=== PATIENT | female | born 1935 | race Caucasian/White ===

== ENCOUNTER → 2016-11-15 | Outpatient (CLI) | payer OTHER, MEDICARE | LOC: BHLMT 09:30 | PROVIDERS: ATTEND Internal Medicine Cardiovascular Disease | DX: R07.9 Chest pain, unspecified (principal); R00.2 Palpitations; I11.9 Hypertensive heart disease without heart failure | CPT/HCPCS: 78452; 93017; A9500; J2785 ==

== ENCOUNTER → 2017-08-22 | Outpatient (CLI) | payer OTHER, MEDICARE | LOC: BHFA 15:00 | PROVIDERS: ATTEND Internal Medicine Cardiovascular Disease | DX: R53.83 Other fatigue (principal); R06.02 Shortness of breath; I11.9 Hypertensive heart disease without heart failure; I48.91 Unspecified atrial fibrillation ==

== ENCOUNTER → 2017-09-04 | Outpatient (CLI) | payer OTHER, MEDICARE | LOC: FLAB 10:49 | PROVIDERS: ATTEND Internal Medicine Cardiovascular Disease | DX: R53.83 Other fatigue (principal); R06.02 Shortness of breath; I11.9 Hypertensive heart disease without heart failure; I48.91 Unspecified atrial fibrillation ==

== ENCOUNTER → 2017-09-08 | Outpatient (CLI) | payer OTHER, MEDICARE | LOC: FIMAGING 10:27 | DX: Z12.31 Encounter for screening mammogram for malignant neoplasm of breast (principal); Z80.3 Family history of malignant neoplasm of breast ==

== ENCOUNTER → 2017-09-28 | Outpatient (CLI) | payer OTHER, MEDICARE | LOC: BHFA 10:00 | PROVIDERS: ATTEND Internal Medicine Cardiovascular Disease | DX: I48.91 Unspecified atrial fibrillation (principal); I11.9 Hypertensive heart disease without heart failure; R53.83 Other fatigue; I49.1 Atrial premature depolarization; R06.02 Shortness of breath ==

== ENCOUNTER 2017-12-20 09:13 | Emergency (ER) | payer OTHER, MEDICARE ==
[2017-12-20 09:44] LABS: PLATELET COUNT 176 10^3/uL (150-400)
[2017-12-20] MEDS ORDERED: DILTIAZEM 25 MG/5 ML VIAL IVP ONE (09:50)
--- NOTE | 2017-12-20 09:54 | EDPHY ---
H & P Stated Complaint: palpitations since this am "i think im in A-fib" Time Seen by Provider: 12/20/17 09:20 HPI/ROS: CHIEF COMPLAINT: Rapid heart rate HISTORY OF PRESENT ILLNESS: 82-year-old female with atrial fibrillation on Eliquis presents with rapid heart rate. She woke this morning with a rapid and pounding heart rate. Associated with vague chest discomfort and significant anxiety. She took metoprolol and Eliquis as prescribed. However, the tachycardia persists. Feels like she is in atrial fibrillation. Chest discomfort is typical of episodes of Afib, no h/o CAD. REVIEW OF SYSTEMS: complete 10 point ROS reviewed and is negative except for the noted elements in the HPI Source: Patient - Medical/Surgical History Hx Asthma: No Hx Chronic Respiratory Disease: No Hx Diabetes: No Hx Cardiac Disease: Yes Hx Renal Disease: No Hx Cirrhosis: No Hx Alcoholism: No Hx HIV/AIDS: No Hx Splenectomy or Spleen Trauma: No Other PMH: A fib. htn - Social History Smoking Status: Never smoked Additional Social History: - Physical Exam Exam: General Appearance: Alert, pleasant Eyes: Pupils equal and round, no conjunctival pallor or injection ENT, Mouth: Mucous membranes moist Neck: Normal inspection Respiratory: Lungs are clear to auscultation Cardiovascular: Regular tachycardia Gastrointestinal: Abdomen is soft and nontender Neurological: A&O, nonfocal, normal gait Skin: Warm and dry, no rash Extremities: Nontender, no pedal edema Psychiatric: Anxious Constitutional: Initial Vital Signs Temperature (C) 36.5 C 12/20/17 09:13 Heart Rate 122 H 12/20/17 09:13 Respiratory Rate 24 H 12/20/17 09:13 Blood Pressure 177/107 H 12/20/17 09:13 O2 Sat (%) 99 12/20/17 09:13 O2 Delivery Mode Room Air Allergies/Adverse Reactions: No Known Allergies Allergy (Unverified 12/20/17 09:18) Home Medications: Medication Instructions Recorded Eliquis 12/20/17 Lisinopril 12/20/17 Metoprolol Tartrate 12/20/17 Medical Decision Making - Diagnostics EKG Interpretation: EKG interpreted by me reveals narrow complex tachycardia, rate 120, likely atrial flutter, no ST or T segment changes. Interpretation: Abnormal EKG ED Course/Re-evaluation: This patient presents with tachycardia, most likely atrial flutter. 0955: Diltiazem 10 mg IV ordered, but not given, as pt converted to NSR, rate 60 -70. Repeat EKG reveals normal sinus rhythm, rate 68, Pac, LVH. Interpretation: Abnormal EKG. Feels much better, anxiety, tachycardia and chest discomfort have completely resolved. Will follow up with Dr. Tierney in the office. Differential Diagnosis: Differential diagnosis includes though it is not limited to pneumonia, pneumothorax, pulmonary embolism, aortic dissection, pericarditis, acute coronary syndrome. - Data Points Laboratory Results: Laboratory Results 12/20/17 09:29 12/20/17 09:29 12/20/17 12/20/17 12/20/17 09:31 09: 09:29 WBC 5.76 10^3/uL 10^3/uL (3.80-9.50) RBC 5.05 10^6/uL 10^6/uL (4.18-5.33) Hgb 16.0 g/dL g/dL (12.6-16.3) Hct 45.0 % % (38.0-47.0) MCV 89.1 fL fL (81.5-99.8) MCH 31.7 pg pg (27.9-34.1) MCHC 35.6 g/dL g/dL (32.4-36.7) RDW 13.4 % % (11.5-15.2) Plt Count 176 10^3/uL 10^3/uL (150-400) MPV 9.3 fL fL (8.7-11.7) Neut % (Auto) 55.7 % % (39.3-74.2) Lymph % (Auto) 29.9 % % (15.0-45.0) Evans % (Auto) 9.5 % % (4.5-13.0) Eos % (Auto) 4.0 % % (0.6-7.6) Baso % (Auto) 0.7 % % (0.3-1.7) Nucleat RBC Rel Count 0.0 % % (0.0-0.2) Absolute Neuts (auto) 3.21 10^3/uL 10^3/uL (1.70-6.50) Absolute Lymphs (auto) 1.72 10^3/uL 10^3/uL (1.00-3.00) Absolute Monos (auto) 0.55 10^3/uL 10^3/uL (0.30-0.80) Absolute Eos (auto) 0.23 10^3/uL 10^3/uL (0.03-0.40) Absolute Basos (auto) 0.04 10^3/uL 10^3/uL (0.02-0.10) Absolute Nucleated RBC 0.00 10^3/uL 10^3/uL (0-0.01) Immature Gran % 0.2 % % (0.0-1.1) Immature Gran # 0.01 10^3/uL 10^3/uL (0.00-0.10) Sodium 140 mEq/L mEq/L (135-145) Potassium 3.6 mEq/L mEq/L (3.3-5.0) Chloride 105 mEq/L mEq/L (97-110) Carbon Dioxide 23 mEq/l mEq/l (22-31) Anion Gap 12 mEq/L mEq/L (6-14) BUN 10 mg/dL mg/dL (7-23) Creatinine 0.6 mg/dL mg/dL (0.6-1.0) Estimated GFR > 60 Glucose 116 mg/dL H mg/dL (70-100) Calcium 10.0 mg/dL mg/dL (8.5-10.4) POC Troponin I 0.03 ng/mL ng/mL (0.00-0.08) NT-Pro-B Natriuret Pep 717 pg/mL H pg/mL (0-450) Medications Given: Discontinued Medications Diltiazem HCl (Cardizem 25 Mg/5 Ml Vial) 10 mg IVP EDNOW ONE Stop: 12/20/17 09:51 Last Admin: 12/20/17 10:02 Dose: Not Given Point of Care Test Results: Chemistry 12/20/17 09:31 POC Troponin I 0.03 ng/mL ng/mL (0.00-0.08) Departure - Departure Disposition: Home, Routine, Self-Care Clinical Impression: Atrial flutter, paroxysmal Condition: Good Instructions: Atrial Flutter (ED) Additional Instructions: Return for recurrent symptoms or any concerns. Referrals: Zeke Tierney MD [Medical Doctor] - As per Instructions
[2017-12-20 10:35] VITALS: BP 177/104
--- NOTE | 2017-12-20 11:16 | CPEKG ---
Test Reason : OPEN Blood Pressure : / mmHG Vent. Rate : 068 BPM Atrial Rate : 066 BPM P-R Int : 211 ms QRS Dur : 109 ms QT Int : 450 ms P-R-T Axes : 068 -26 019 degrees QTc Int : 479 ms Sinus rhythm Atrial premature complexes Probable left ventricular hypertrophy Confirmed by Charla Ellington ([id number]) on 12/20/2017 11:15:56 AM Referred By: Confirmed By:Charla Ellington
--- NOTE | 2017-12-20 11:17 | CPEKG ---
Test Reason : OPEN Blood Pressure : / mmHG Vent. Rate : 119 BPM Atrial Rate : 119 BPM P-R Int : 146 ms QRS Dur : 110 ms QT Int : 336 ms P-R-T Axes : 231 -24 063 degrees QTc Int : 473 ms probable atrial flutter Incomplete left bundle branch block LVH with secondary repolarization abnormality Confirmed by Charla Ellington ([id number]) on 12/20/2017 11:16:28 AM Referred By: Confirmed By:Charla Ellington
== END 2017-12-20 10:35 | disposition home or self-care (01) ==
DX: I48.92 Unspecified atrial flutter (principal)
CPT/HCPCS: 84484-PO

== ENCOUNTER → 2018-03-29 | Outpatient (CLI) | payer OTHER, MEDICARE | LOC: BHFA 14:15 | PROVIDERS: ATTEND Internal Medicine Cardiovascular Disease | DX: R07.9 Chest pain, unspecified (principal); I48.91 Unspecified atrial fibrillation; I11.9 Hypertensive heart disease without heart failure; E78.5 Hyperlipidemia, unspecified ==